=== PATIENT | female | born 1990 | race Two or more races ===

== ENCOUNTER 2020-03-20 01:19 | Inpatient (IN) | payer OTHER ==
[~2020-03-20] VITALS: Ht 162.6 cm; Wt 72.3 kg
[2020-03-20 01:32] VITALS: Ht 162.6 cm; Wt 72.3 kg
[2020-03-20 03:21] LABS: BASOPHIL % 0.4 % (0.2-1.3); PLATELET COUNT 383 x10^3mcL (179-408)
[2020-03-20 04:07] LABS: CALCIUM 9.3 mg/dL (8.5-10.1); CARBON DIOXIDE 26.5 mmol/L (21-32); CHLORIDE SERUM 103 mmol/L (98-107); CREATININE SERUM 0.8 mg/dL (0.6-1.0); GFR1 > 60 mL/min; GLUCOSE SERUM 103 mg/dL (74-106); POTASSIUM SERUM 3.5 mmol/L (3.5-5.1); SODIUM SERUM 138 mmol/L (136-145)
[2020-03-20 04:14] LABS: ALBUMIN 3.4 g/dL (3.4-5.0); ALKALINE PHOSPHATASE 124 U/L (46-116); ALT/SGPT 26 U/L (14-59); AST/SGOT 12 U/L (15-37); BILIRUBIN TOTAL 0.51 mg/dL (0.20-1.00); TOTAL PROTEIN, SERUM 7.9 g/dL (6.4-8.2)
[2020-03-20 14:26] VITALS: BP 108/61
== END 2020-03-20 15:10 | disposition home or self-care (01) | DRG 761 ==
LOC: ED 01:19 → MU 05:51
PROVIDERS: ADMIT Hospitalist; ATTEND Hospitalist
DX: N80.9 Endometriosis, unspecified (principal); Z20.822 Contact with and (suspected) exposure to COVID-19
CPT/HCPCS: G0378; J1885; J2543; J7030